=== PATIENT | female | born 1990 | race Caucasian/White ===

== ENCOUNTER 2020-05-23 14:36 | Observation (INO) | payer OTHER, SELFPAY ==
[2020-05-23 15:00] VITALS: BMI 34.9
[2020-05-23 17:31] VITALS: BP 123/86; PULSE 91
--- NOTE | 2020-05-25 09:56 | PM.OBTRLD ---
OB - Triage/Final Diagnosis Visit Information Reason for evaluation: threatened labor Comments/Additional reasons for admission: I have assessed the risk for this patient, Xiomy Rebolledo, and determined that she would benefit from observation care.
== END 2020-05-23 18:04 | disposition home or self-care (01) ==
PROVIDERS: Admitting Provider Obstetrics & Gynecology; PCP Family Medicine Adolescent Medicine; Visit Provider Obstetrics & Gynecology
DX: O47.1 False labor at or after 37 completed weeks of gestation (principal); Z3A.38 38 weeks gestation of pregnancy
CPT/HCPCS: G0378; G0379

== ENCOUNTER 2020-05-27 06:30 | Inpatient (IN) | payer OTHER, SELFPAY ==
[2020-05-27] VITALS (86 sets, daily range): BP systolic 106–140; BP diastolic 54–103; PULSE 64–160; RESP 16–18; TEMP 36.3–37.3; O2SAT 98–100; BMI 34.7
--- NOTE | 2020-05-27 07:28 | PM.IMHP ---
H&P: HPI History of Present Illness Date/Time: 05/27/20 07:28 30 yo at 39w1d who presents for elective induction of labor. She denies any vaginal bleeding, leakage of fluid or regular contractions. She endorses good movement. 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 Chief Complaint: intrauterine at term Review of Systems Review of Systems: All systems reviewed & are unremarkable except as noted in HPI and below PMFSH Family History Family History (System 05/13/20 @ 13:35 by Berenice Laws) Mother Acute myocardial infarction Grandparent Colon cancer Diabetes mellitus Other Patient's mother is Social History Social History (System 05/13/20 @ 13:35 by Berenice Laws) Substance use: never Spiritual care concerns: No Meds Home Medications and Allergies Home Medications Medication Instructions Recorded Confirmed Type prenat.vits,mel,uiw-tfwm-hivat 1 tablet PO DAILY 05/07/20 05/23/20 History sertraline 50 mg PO DAILY 05/07/20 05/23/20 History valacyclovir [Valtrex] 500 mg PO DAILY 05/07/20 05/23/20 History Allergies Allergy/AdvReac Type Severity Reaction Status Date / Time No Known Allergies Allergy Verified 05/13/20 13:35 Vital Signs Vital Signs - 24 hr 05/27/20 07:05 Pulse Rate 100 Blood Pressure 118/85 Exam Const: General: cooperative, healthy appearing and comfortable Resp: Effort & Inspection: normal respiratory effort and able to speak in complete sentences Auscultation: clear to auscultation bilaterally Cardio: Rate: regular rate Rhythm: regular rhythm GI: Inspection: normal to inspection and other (gravid) Skin: General skin exam: normal color and no rashes or lesions noted Neuro: General: oriented to person, oriented to place and oriented to time Extrem: General: normal to inspection Assessment and Plan Assessment and plan (1) Supervision of high risk , unspecified, third trimester: Code(s): O09.93 - Supervision of high risk , unspecified, third trimester Status: Acute Assessment and Plan: 30 yo at 39w1d who presents for elective IOL Rh+ GBS neg FHT cat 1 genital HSV, on valtrex suppression anxiety on zoloft pt had COVID-19 during , asymptomatic now plan for AROM for augmentation continuous EFM
[2020-05-27 07:34] LABS: Basophils Percent Auto 0.3 % (0.2-1.2); Eosinophils Absolute Auto 0.1 K/mm3 (0-0.3); Eosinophils Percent Auto 0.8 % (0-4.4); Hematocrit 37.3 % (37.0-47.0); Hemoglobin 12.7 g/dL (12.0-15.0); Immature Granulocyte Absolute 0.22 K/mm3 (0.00-0.031); Immature Granulocyte Percent A 1.9 % (0-0.5); Lymphocytes Absolute Auto 2.55 K/mm3 (0.9-3.2); Lymphocytes Percent Auto 22.3 % (18.3-44.2); Mean Corpuscular Hemoglobin 32.5 pg (26-34); Mean Corpuscular Volume 95.4 fl (80-100); Mean Platelet Volume 9.7 fl (7.4-10.4); Monocytes Absolute Auto 0.9 K/mm3 (0.1-0.6); Monocytes Percent Auto 8.2 % (2.6-8.5); Neutrophils Absolute Auto 7.6 K/mm3 (1.3-6.7); Neutrophils Percent Auto 66.5 % (45.5-73.1); Platelet Count Result 290 k/mm3 (150-375); Red Blood Count 3.91 M/mm3 (4.2-5.4); Red Cell Distribution Width 12.5 % (11.5-14.5); White Blood Count 11.4 K/mm3 (4.5-10.0)
--- NOTE | 2020-05-27 07:41 | LDADM ---
This patient, Xiomy Rebolledo, was admitted to Labor/Delivery/Recovery 104 on 05/27/20 at 06:30. Plans for labor, pain management and were discussed with patient. Patient/family oriented to hospital policies and general routines including ID bracelet, bed and alarms, visiting hours, pain management, procedures, bathroom and other care routines, personal items, smoking policy, room service/diet and guest tray routines, infant security routines, and visiting hours. Patient/Family are encouraged to report perceived risks to care and to ask questions if they do not understand what they are told or what they should do. See OBIX for further documentation.
[2020-05-27 07:54] LABS: Rapid Plasma Reagin Non-Reactive (NonReactive)
--- NOTE | 2020-05-27 11:08 | WPDANESEPP ---
Anes - Eval Pre Procedure Date/Time: 05/27/20 11:08 Pre Op Diagnosis: Induction of Labor Patient Data Age: 30 Gender: F Height: 1.7 m Weight: 100.7 kg Last Vital Signs Temp 36.3 C L 05/27/20 09:30 Pulse 79 05/27/20 10:16 BP 109/62 05/27/20 10:16 Allergies Allergy/AdvReac Type Severity Reaction Status Date / Time No Known Allergies Allergy Verified 05/13/20 13:35 Home Medications Medication Instructions Recorded Confirmed Type prenat.vits,mel,yas-xdji-czzik 1 tablet PO DAILY 05/07/20 05/23/20 History sertraline 50 mg PO DAILY 05/07/20 05/23/20 History valacyclovir [Valtrex] 500 mg PO DAILY 05/07/20 05/23/20 History Laboratory Tests 05/27/20 05/27/20 05/27/20 06:59 06:59 07:00 WBC 11.4 K/mm3 H K/mm3 (4.5-10.0) RBC 3.91 M/mm3 L M/mm3 (4.2-5.4) Hgb 12.7 g/dL g/dL (12.0-15.0) Hct 37.3 % % (37.0-47.0) MCV 95.4 fl fl (80-100) MCH 32.5 pg pg (26-34) MCHC 34.0 g/dl g/dl (32-36) RDW 12.5 % % (11.5-14.5) Plt Count 290 k/mm3 k/mm3 (150-375) MPV 9.7 fl fl (7.4-10.4) Immature Gran % (Auto) 1.9 % H % (0-0.5) Neut % (Auto) 66.5 % % (45.5-73.1) Lymph % (Auto) 22.3 % % (18.3-44.2) Karnes % (Auto) 8.2 % % (2.6-8.5) Eos % (Auto) 0.8 % % (0-4.4) Baso % (Auto) 0.3 % % (0.2-1.2) Lymph # (Auto) 2.55 K/mm3 K/mm3 (0.9-3.2) Karnes # (Auto) 0.9 K/mm3 H K/mm3 (0.1-0.6) Eos # (Auto) 0.1 K/mm3 K/mm3 (0-0.3) Baso # (Auto) 0.0 K/mm3 K/mm3 (0.0-0.1) Abs Immat Gran (auto) 0.22 K/mm3 H K/mm3 (0.00-0.031) Absolute Neuts (auto) 7.6 K/mm3 H K/mm3 (1.3-6.7) Absolute Nucleated RBC 0.0 K/mm3 K/mm3 (0.0-0.012) Nucleated RBC % 0.0 % % (0.0-0.2) RPR Non-reactive (NonReactive) Blood Type O Positive Antibody Screen Negative Patient hx anesthesia problems: none Family hx anesthesia problems: none PMFSH Past Medical History Medical History Anxiety HSV (herpes simplex virus) infection of eyelid Obese Family History Family History Mother Acute myocardial infarction Grandparent Colon cancer Diabetes mellitus Other Patient's mother is Social History Social History Smoking status: Never smoker Second hand tobacco smoke exposure: No Substance use: never Spiritual care concerns: No Exam Day of Procedure 05/27/20 11:08 Patient weight: obese Heart: regular rate and rhythm Lungs: normal air movement Airway: Mallampati scale class II Neurological: alert and oriented
[2020-05-27] MEDS: LACTATED RINGERS 1,000 ML 125 ML IV CONT ×2 (13:06→13:34)
[2020-05-27] MEDS: OXYTOCIN 30 UNITS/NS 500 ML 30 UNITS/500 ML BAG IV CONT (14:10)
--- NOTE | 2020-05-27 17:00 | P.PCNOB_ITS ---
OB - Delivery Note Procedure Procedure: Patient pushed for a spontaneous vaginal delivery. The fetus was delivered atraumatically and placed on the maternal abdomen. The cord was clamped and cut after 1 minute of life. The cord was double clamped and cut and a segment of cord was collected for cord gases. Cord blood was collected for blood type and Coomb's testing. The placenta delivered spontaneously and was noted to be intact. The perineum was inspected and there was a 2nd degree perineal laceration. The laceration was repaired with 2-0 vicryl in the usual fashion. The uterus was firm and good hemostasis was noted. The patient and fetus were stable in the delivery room. Intrapartal events: None Induction method: AROM Delivery augmentation: pitocin Delivery monitor: external FHT Route of delivery: Episiotomy description: None Laceration Description: Perineal - 2nd Degree Delivery repair: vicryl Specimen: No Quantitative Blood Loss (ml): 400 Anesthesia type: Epidural Disposition: floor () Complications: No immediate complications [place] Baby Date of : 05/27/20 Time of : 16:42 Weeks of gestation at delivery: 39 Infant gender: Male Weight (pounds): 9 Weight (ounces): 6 presentation: vertex position: Right Occiput Anterior Placenta delivery description: Spontaneous cord vessel description: 3 Vessels score one minute: 9 score five minutes: 9
[2020-05-27] MEDS: OXYTOCIN 30 UNITS/NS 500 ML 30 UNITS/500 ML BAG 125 UNITS IV CONT (17:24)
[2020-05-27] MEDS: BENZOCAINE 20% AER SPR (*SP) 56 GM CAN 1 SPRAY TOPICAL (18:23)
[2020-05-27] MEDS: WITCH HAZEL 40 PADS 1 PAD TOPICAL (18:23)
[2020-05-27] MEDS: IBUPROFEN 600 MG TABLET PO (18:36)
[2020-05-27] MEDS: ACETAMINOPHEN 325 MG TABLET 650 MG PO (21:30)
[2020-05-28] MEDS: IBUPROFEN 600 MG TABLET PO ×2 (02:20→08:49)
[2020-05-28 03:13] LABS: Hemoglobin 11.5 g/dL (12.0-15.0)
[2020-05-28 07:05] VITALS: BP 120/82; PULSE 97; RESP 18; TEMP 37.1; O2SAT 99
--- NOTE | 2020-05-28 07:40 | P.PNOB_ITS ---
OB - PN: Subj Subjective Date/time seen: 05/28/20 07:40 Patient comments: no complaints, pain well controlled and tolerating diet [place] feeding status: exclusively breast feeding Narrative: patient doing well this AM. No complaints. Pain is well controlled. She reports minimal bleeding. She is ambulating and voiding without difficulty. She is tolerating PO. She denies N/V, fever, chills. OB - PN: Obj Data Labs CBC & Chem 7: 05/28/20 03:00 Labs: Laboratory Results - last 24 hr 05/27/20 05/27/20 05/28/20 06:59 06:59 03:00 Hgb 11.5 L Hct 34.0 L RPR Non-reactive Blood Type O Positive Antibody Screen Negative OB - PN A/P Plan day: 1 Plan: routine care Comments: patient doing well H/H stable plan for infant circumcision today, risks, benefits and alternatives discussed. verbal consent obtained continue routine care Time Spent With Patient Time: Total time spent is greater than 50% in coordination of care (as documented) at patient's floor/unit and/or counseling patient: Time with patient: less than 15 minutes Review of Systems Review of Systems: All systems reviewed & are unremarkable except as noted in HPI and below Exam Const: General: comfortable and no acute distress Resp: Effort & Inspection: normal respiratory effort Cardio: Rate: regular rate GI: GI Palp: Yes Soft to palpation and No Tenderness to palpation present (GI) Auscultation: normal bowel sounds Other: fundus firm and below umbilicus. Psych: Affect: normal affect
[2020-05-28] MEDS: DOCUSATE SODIUM 100 MG CAPSULE PO (08:49)
[2020-05-28] MEDS: SERTRALINE HCL 50 MG TABLET PO (08:49)
[2020-05-28] MEDS: MULTIVIT/MIN/PREN/FOL AC/IRON TABLET 1 TAB PO (08:49)
--- NOTE | 2020-05-28 09:43 | WPDANLDPN2 ---
Anes-Prog Note L&D Date/Time: 05/28/20 09:43 Comfortable throughout: labor and delivery Neuraxial method: epidural Epidural/Spinal procedure site: clean & non-tender Neuro status: Neuro function grossly intact. Cardiovascular status: normal Respiratory status: normal Airway patency: baseline Mental status: baseline Post-Op hydration status: normal Vital Signs: Last Vital Signs Temp 37.1 C 05/28/20 07:05 Pulse 97 05/28/20 07:05 Resp 18 05/28/20 07:05 BP 120/82 05/28/20 07:05 Pulse Ox 99 05/28/20 07:05 Pain score (VAS): 3 I/O: Intake & Output 05/27/20 05/28/20 05/28/20 23:59 07:59 15:59 Intake Total 1700 Output Total 520 Balance 1180 Post-procedural complaints: none Patient feedback: Patient satisfied with anesthetic care.
--- NOTE | 2020-05-28 10:50 | PC.NURSE ---
Consulted with patient, mother reports infant is eagerly feeding without difficulties or discomfort. Mother reports this to be 2nd child first is 5 yrs old. Reviewed infant feeding cues, frequencies, duration of feedings, feeding elimination flow sheet, and signs of adequate intake. Demonstrated stimulation techniques to wake for feeding. Reviewed positioning/alignment in cross cradle, holding breast in U hold and guided asymmetrical latch on. was able to latch correctly. Infant nursed eagerly, with steady draws and frequent swallowing noted. Reviewed signs of a correct latch, effective nursing and suck swallow ratio. Infant was able to maintain latch without discomfort to mother. Nipple care reviewed. Mother is feeding as required and waking infant to feed if needed. has had several effective feedings in the past 24 hours, and is currently meeting outcomes for weight, output, jaundice and feeding frequencies. Mother states she feels confident to continue effective at home. Reviewed transition to breast milk, signs of adequate intake, and engorgement/relief. Instructed to call ICP if intake/output less than required. Reviewed regular medications mother is taking. Information provided per Miriam. Reviewed community resources on the [employer] website and in the Mom/Baby guide. Information on outpatient services provided. Mother has no further questions at this time. Instructed mother to call out for RN assistance if she is unable to latch for feeding or she has discomfort with nursing. Instructed feeding should be initiated three hours from start of last feeding or if feeding cues are noted before. Mother voiced understanding of information shared.
[2020-05-28 11:55] VITALS: BP 97/55; PULSE 66; RESP 18; TEMP 36.9; O2SAT 98
[2020-05-28] MEDS: ACETAMINOPHEN 325 MG TABLET 650 MG PO ×2 (13:23→19:05)
[2020-05-28 16:40] VITALS: BP 106/61; PULSE 71; RESP 16; TEMP 36.9
[2020-05-28 18:58] VITALS: BP 104/59; PULSE 69; RESP 16; TEMP 36.8
--- NOTE | 2020-05-29 07:21 | PM.OBDSVD ---
DS: Admitting Diagnosis Admitting Diagnosis Admitting Diagnosis: intrauterine at term OB - DS: Summary OB Procedures : None OB Procedures Intrapartum: Spontaneous Vag Delivery OB Procedures: : None Status at Discharge Functional status at discharge: independent ambulation Overall status at discharge: patient is back to baseline Time Spent with Patient Time attestation: Total time spent providing and/or coordinating discharge services: Time spent: Less than 30 minutes Exam Const: General: comfortable and no acute distress Resp: Effort & Inspection: normal respiratory effort Auscultation: clear to auscultation bilaterally Cardio: Rate: regular rate GI: GI Palp: Yes Soft to palpation Auscultation: normal bowel sounds Other: Fundus firm below umbilicus Psych: Appearance: grossly normal Mental Status: mental status grossly normal Affect: normal affect Discharge Plan Discharge Discharging Clinician: Lonnie Mari Anticipated Discharge Date/Time: 05/29/20 07:21 Patient Disposition: Home, Self-Care Activity: as tolerated and pelvic rest Diet: regular Patient Instructions: Vaginal Delivery (DC), Antibiotic Form Stand Alone Forms: General Discharge Information Follow-up/Referrals: Markie Gann MD [Physician] - Discharge Medications: New Dermoplast (with menthol) 20-0.5 % Aerosol 1 spray topical PRN PRN (Reason: Perineal Discomfort) Qty: 1 RF: 0 acetaminophen [Mapap (acetaminophen)] 325 mg Tablet 650 mg PO Q6H PRN (Reason: Mild Pain (1-3) Or Headache) Qty: 30 RF: 0 ibuprofen 600 mg Tablet 600 mg PO Q6H PRN (Reason: Cramping) Qty: 30 RF: 0 Loc-B-Egcjro Cream 1 applic topical PRN PRN (Reason: Sore Nipples) Qty: 28 RF: 0 Continued valacyclovir [Valtrex] 500 mg Tablet 500 mg PO DAILY RF: 0 sertraline 50 mg Tablet 50 mg PO DAILY RF: 0 prenat.vits,mel,voj-jtrf-dhqxg Tablet 1 tablet PO DAILY RF: 0 Date of admission: 05/27/20 06:30 Primary Care Provider: Ronan Ventura Admitting Provider: Markie Gann Attending physician on admission: Markie Gann Condition: Stable
[2020-05-29] MEDS: MULTIVIT/MIN/PREN/FOL AC/IRON TABLET 1 TAB PO (08:17)
[2020-05-29] MEDS: WITCH HAZEL 40 PADS 1 PAD TOPICAL (08:17)
[2020-05-29] MEDS: DOCUSATE SODIUM 100 MG CAPSULE PO (08:17)
[2020-05-29] MEDS: BENZOCAINE 20% AER SPR (*SP) 56 GM CAN 1 SPRAY TOPICAL (08:17)
[2020-05-29] MEDS: SERTRALINE HCL 50 MG TABLET PO (08:17)
[2020-05-29] MEDS: ACETAMINOPHEN 325 MG TABLET 650 MG PO (08:22)
[2020-05-29 08:30] VITALS: BP 110/66; PULSE 69; PULSE 80; RESP 16; RESP 18; TEMP 36.6; O2SAT 100; O2SAT 98
[2020-05-31 11:15] VITALS: BP 121/75; PULSE 85; RESP 20; TEMP 36.7; O2SAT 100
== END 2020-05-29 10:33 | disposition home or self-care (01) | DRG 806 ==
LOC: ANHOB2 05-29 07:24 → ANHLDR 06-01 09:27 → ANHOB2 06-01 09:27
PROVIDERS: Admitting Provider Student in an Organized Health Care Education/Training Program; PCP Family Medicine Adolescent Medicine; Visit Provider Student in an Organized Health Care Education/Training Program
DX: O99.344 Other mental disorders complicating childbirth (principal); Z37.0 Single live birth; Z3A.39 39 weeks gestation of pregnancy; F41.9 Anxiety disorder, unspecified; O98.32 Other infections with a predominantly sexual mode of transmission complicating childbirth; B00.9 Herpesviral infection, unspecified; O70.1 Second degree perineal laceration during delivery; O99.214 Obesity complicating childbirth; E66.9 Obesity, unspecified; Z86.16 Personal history of COVID-19
CPT/HCPCS: 36415; 85014; 85018; 85025; 86592; 86850; 86900; 86901; A9270; J2590; J2795; J7120

== ENCOUNTER 2022-05-03 08:02 | Outpatient (CLI) | payer OTHER, SELFPAY ==
[2022-05-03 08:20] VITALS: BP 107/66; PULSE 89
[2022-05-03 08:30] VITALS: BP 116/66; PULSE 79
[2022-05-03 08:33] LABS: Basophils Percent Auto 0.2 % (0.2-1.2); Eosinophils Absolute Auto 0.1 K/mm3 (0-0.3); Eosinophils Percent Auto 0.6 % (0-4.4); Hemoglobin 13.2 g/dL (12.0-15.0); Immature Granulocyte Absolute 0.06 K/mm3 (0.00-0.031); Immature Granulocyte Percent A 0.5 % (0-0.5); Lymphocytes Absolute Auto 1.87 K/mm3 (0.9-3.2); Lymphocytes Percent Auto 15.7 % (18.3-44.2); Mean Corpuscular HGB Conc 33.8 g/dl (32-36); Mean Corpuscular Hemoglobin 33.1 pg (26-34); Mean Corpuscular Volume 97.7 fl (80-100); Mean Platelet Volume 9.1 fl (7.4-10.4); Monocytes Absolute Auto 0.7 K/mm3 (0.1-0.6); Monocytes Percent Auto 5.7 % (2.6-8.5); Neutrophils Absolute Auto 9.2 K/mm3 (1.3-6.7); Neutrophils Percent Auto 77.3 % (45.5-73.1); Platelet Count Result 280 k/mm3 (150-375); Red Blood Count 3.99 M/mm3 (4.2-5.4); Red Cell Distribution Width 13.1 % (11.5-14.5); White Blood Count 11.9 K/mm3 (4.5-10.0)
[2022-05-03 08:42] LABS: Total Protein Urine Random 10 mg/dL; Ur Ttl Prot Creatinine Ratio 0.13 mg/mg (0-0.20)
[2022-05-03 08:45] VITALS: BP 112/67; PULSE 72
--- NOTE | 2022-05-03 08:45 | PC.NURSE ---
Dr. Gann on unit. Tracing, labs, and BPs reviewed. July D/C home.
[2022-05-03 08:46] LABS: Alanine Aminotransferase 16 U/L (6-35); Albumin Level 3.8 g/dL (3.5-5.1); Alkaline Phosphatase 108 U/L (38-126); Anion Gap 6 mmol/L (8-16); Aspartate Amino Transferase 23 U/L (14-36); Bilirubin,Total 0.5 mg/dL (0.2-1.3); Blood Urea Nitrogen 8 mg/dL (7-17); Calcium 8.2 mg/dL (8.4-10.2); Carbon Dioxide 21 mmol/L (22-30); Chloride 107 mmol/L (98-107); Estimated Glomerular Filt Rate > 60; Glucose 91 mg/dL (65-110); Potassium 4.2 mmol/L (3.4-5.0); Sodium 134 mmol/L (137-145)
[2022-05-03 08:47] VITALS: PULSE 72
[2022-05-03 08:50] LABS: Appearance Urine Clear (Clear); Bilirubin Urine Negative (Negative); Blood Urine Negative (Negative); Color Urine Yellow (Yellow); Glucose Urine UA Negative (Negative); Ketones Urine Negative (Negative); Leukocyte Esterase Ur Trace LEU/UL (NEGATIVE); Nitrate Urine Negative (Negative); Protein Urine Negative (Negative); pH Urine 7.5 (5.0-9.0)
[2022-05-03 08:55] LABS: Bacteria Urine Trace /hpf; Mucus Urine Rare /lpf; RBC Urine 0-2 /hpf (0-2); Squamous Epithelial Cell Urine Many /hpf (Few)
[2022-05-03 09:32] LABS: Add Urine Microscopic? YES
== END 2022-05-03 08:55 | disposition home or self-care (01) ==
LOC: ANHOBOP 08:09 → ANHOBPP 08:09
PROVIDERS: PCP Family Medicine Adolescent Medicine; Visit Provider Obstetrics & Gynecology
DX: O13.9 Gestational [pregnancy-induced] hypertension without significant proteinuria, unspecified trimester (principal); Z3A.00 Weeks of gestation of pregnancy not specified
CPT/HCPCS: 36415; 59025; 80053; 81001; 82570; 84156; 84550; 85025; 87086; 99199

== ENCOUNTER 2022-07-18 01:32 | Emergency (ER) | payer OTHER, SELFPAY ==
[2022-07-18 01:37] VITALS: BP 119/72; PULSE 135; RESP 20; TEMP 37.7; O2SAT 99
--- NOTE | 2022-07-18 02:58 | PC.NURSE ---
Pt approached triage desk and states Im just going to go, my doctor is going to call me in a script tomorrow . Pt ambulated out of ED with steady gait, in no obvious distress.
== END 2022-07-18 03:25 | disposition left against medical advice (07) ==
LOC: ANHED 03:15
PROVIDERS: PCP Family Medicine Adolescent Medicine
DX: O92.29 Other disorders of breast associated with pregnancy and the puerperium (principal)
CPT/HCPCS: 99199

== ENCOUNTER 2023-09-01 09:48 | Emergency (ER) | payer OTHER, SELFPAY ==
--- NOTE | ~2023-09-01 | CT_ITS ---
EXAMINATION: CT abdomen pelvis w con DATE: 09/01/2023 11:26 INDICATION: Left upper and lower quadrant abdominal pain TECHNIQUE: Computed tomography (CT) of the abdomen and pelvis was performed with 100 CC Omnipaque 350 intravenous contrast. Automated exposure control and iterative reconstruction technique were employe d. Exam dose: 418.24 mGy-cm total exam DLP. COMPARISON: None. FINDINGS: The lung bases are clear. Normal heart size. No pericardial or pleural effusion. The liver, gallbladder, bile ducts, spleen, pancreas and pancreatic duct appear normal. Normal morphology of the adrenal glands. No renal mass lesion or urinary tract calculus or hydroureteronephrosis. Alignment normal caliber of the abdominal aorta. No intraperitoneal or retroperitoneal or pelvic mass lesion or adenopathy or asc ites is detected. Normal caliber of the abdominal aorta. No intraperitoneal or retroperitoneal or pelvic mass lesion o r adenopathy or ascites. The uterus, adnexal areas are unremarkable other than ovarian cysts measurin g up to approximately 12 mm maximal dimension. There is mucosal enhancement and wall thickening of the rectum and colon. There are some fluid levels in the small bowel as well as colon no bowel obstruction or intraperitoneal free air is detected. L3 limbus vertebra. No suspicious osteolytic or osteoblastic lesions. IMPRESSION: Mucosal enhancement and thickening of the wall of the rectum and colon suggesting diffus e colitis, which may be infectious or inflammatory; no mesenteric arterial strictures or obstruction are noted Reviewed, dictated and finalized at [facility]. Reviewed, dictated and finalized at [facility]. IMPRESSION: Mucosal enhancement and thickening of the wall of the rectum and c olon suggesting diffuse colitis, which may be infectious or inflammatory; no me senteric arterial strictures or obstruction are noted
[2023-09-01 10:12] VITALS: BP 117/85; PULSE 82; RESP 20; TEMP 36.7; O2SAT 98
--- NOTE | 2023-09-01 10:36 | ED.GENADULT ---
HPI - General Adult General Chief complaint: Nausea/Vomiting/Diarrhea Stated complaint: vomiting/diarrhea x 4 days Time Seen by Provider: 09/01/23 09:54 History of Present Illness HPI narrative: 33-year-old female presenting to the emergency department for evaluation for left-sided abdominal pain. Patient has had nausea vomiting diarrhea for the last 4 days. Patient states that she has also had some bright red blood in her stool but has also had some dark black in her stool. Patient states she has been taking increased ibuprofen due to ankle pain and knee pain. Patient was just on vacation and denies any excessive alcohol consumption. Related Data Home Medications Medication Instructions Recorded Confirmed sertraline 100 mg tablet 100 mg PO DAILY 09/15/21 06/04/23 alprazolam 0.5 mg tablet (Xanax) 0.5 mg PO BID 01/15/23 06/04/23 Allergies Allergy/AdvReac Type Severity Reaction Status Date / Time No Known Allergies Allergy Verified 06/04/23 15:15 Review of Systems Review of Systems: All systems reviewed & are unremarkable except as noted in HPI and below PMFSH Past Medical History Medical History (Updated 09/01/23 @ 17:33 by Mark Fierro MD) Abnormal thyroid exam Anxiety BMI 30.0-30.9,adult BMI 31.0-31.9,adult Fatigue Fracture of left forearm 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 Right ankle strain Torn ACL Family History Family History Mother Acute myocardial infarction Patient's mother is Grandparent Colon cancer Diabetes mellitus Father Hypertension Acute alcoholic intoxication in alcoholism Sibling Hypertension Hyperlipidemia Social History Social History Smoking status: Never smoker Second hand tobacco smoke exposure: No Alcohol intake: current Substance use: never Substance use type: does not use Do You Feel Safe in your Home?: Yes Lack of Transportation: No Lack of Food: Never True Current Housing: I Have Housing Concerned About Future Housing: No Difficulty Paying Gas/Electric Bills: No Difficulty Paying for Meds: No Currently Unemployed: No Education: Bachelor's Degree Difficulty w/ Childcare or Family Care: No Living arrangements: with family Occupation/Education: occupation 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 Gender identity (if verbalized by the patient): Female Spiritual care concerns: No Exam Narrative: APPEARANCE: Well appearing, no pain, no distress, well-nourished. HEAD: normocephalic, atraumatic. EYES: PERRLA/EOMI, conjunctivae clear. NOSE: Normal no drainage EARS:TMS clear with good light reflex. THROAT: Pharynx clear, no exudate. NECK: Supple. No adenopathy, no masses. RESPIRATORY: Airway patent, respirations nonlabored. Clear to auscultation bilaterally, no rales, rhonchi, wheezing. CARDIOVASCULAR: Regular rate and rhythm without murmurs rubs or gallops. ABDOMINAL: Left upper and left lower quadrant tenderness to palpation Rectal exam: Hemoccult negative on the digital rectal exam MUSCULOSKELETAL: Moves all extremities. Strength/ROM intact, No edema, No calf tenderness. NEURO: Alert. Cranial nerves II through XII intact. Grossly intact SKIN: Warm, dry. Normal Color Course Course Emergency Course: Patient was up to the results of workup patient was comfortable plan with discharge and close follow-up Vital Signs Vital signs: Vital Signs Temperature 98.0 F 09/01/23 10:12 Pulse Rate 82 09/01/23 10:12 Respiratory Rate 20 09/01/23 10:12 Blood Pressure 117/85 09/01/23 10:12 Pulse Oximetry 98 09/01/23 10:12 Oxygen Delivery Room Air 09/01/23 10:12 Temperature 98.0 F 09/01/23 10:12 Pulse Rate 74 09/01/23 12:34 Respiratory Rate 18 09/01/23 12:34 Blood Pressure 117/72 09/01/23 12:34 Pulse O
[2023-09-01] MEDS: SODIUM CHLORIDE 0.9% IV 1,000 ML 999 ML IV CONT (10:53)
[2023-09-01 10:54] LABS: Hematocrit 42.6 % (37.0-47.0); Hemoglobin 14.3 g/dL (12.0-15.0); Mean Corpuscular HGB Conc 33.6 g/dl (32-36); Mean Corpuscular Hemoglobin 31.5 pg (26-34); Mean Corpuscular Volume 93.8 fl (80-100); Mean Platelet Volume 9.6 fl (7.4-10.4); Platelet Count Result 272 k/mm3 (150-375); Red Blood Count 4.54 M/mm3 (4.2-5.4); Red Cell Distribution Width 12.4 % (11.5-14.5); White Blood Count 6.2 K/mm3 (4.5-10.0)
[2023-09-01 11:06] LABS: Lactic Acid Reflex 0.5 mmol/L (0.7-2.0)
[2023-09-01 11:07] LABS: Alanine Aminotransferase 12 U/L (6-35); Albumin Level 4.7 g/dL (3.5-5.1); Alkaline Phosphatase 80 U/L (38-126); Anion Gap 11 mmol/L (4-12); Aspartate Amino Transferase 26 U/L (14-36); Bilirubin,Total 0.5 mg/dL (0.2-1.3); Blood Urea Nitrogen 8 mg/dL (7-17); Calcium 9.1 mg/dL (8.4-10.2); Carbon Dioxide 22 mmol/L (22-30); Chloride 105 mmol/L (98-107); Estimated CRCL calculation 83 ml/min; Estimated Glomerular Filt Rate > 60; Glucose 88 mg/dL (65-110); Lipase 58 U/L (23-300); Potassium 3.6 mmol/L (3.4-5.0); Sodium 138 mmol/L (137-145)
[2023-09-01 11:31] LABS: Appearance Urine Clear (Clear); Bacteria Urine None Seen /hpf; Bilirubin Urine 1+ (Negative); Blood Urine 2+ (Negative); Color Urine Dark Yellow (Yellow); Glucose Urine UA Negative (Negative); Ketones Urine 1+ mg/dL (Negative); Leukocyte Esterase Ur Negative LEU/UL (Negative); Need Manual Microscopic Reviewed; Nitrate Urine Negative (Negative); Protein Urine 2+ mg/dL (Negative); RBC Urine 21-50 /hpf (0-2); Specific Grav Ur 1.028 (1.001-1.035); Squamous Epithelial Cell Urine Occasional /hpf (Few)
[2023-09-01 11:36] LABS: Add Urine Microscopic? YES
[2023-09-01 12:00] LABS: Band Neutrophils Percent 2 % (0-6); Eosinophils Absolute Manual 0.12 K/mm3 (0.02-0.50); Eosinophils Percent Manual 2 % (0-4); Lymphocytes Absolute Manual 1.42 K/mm3 (1.1-4.5); Monocytes Absolute Manual 1.24 K/mm3 (0.1-0.90); Monocytes Percent Manual 20 % (3-9); Neutrophils Absolute Manual 3.41 K/mm3 (1.7-7.2); Neutrophils Percent Manual 53 % (46-73); Total Cells Counted 100
[2023-09-01 12:01] LABS: Platelet Estimate Adequate (Adequate); Schistocytes None Seen
[2023-09-01 12:34] VITALS: BP 117/72; PULSE 74; RESP 18; O2SAT 100
== END 2023-09-01 12:35 | disposition home or self-care (01) ==
PROVIDERS: Emergency Provider Emergency Medicine; PCP Family Medicine
DX: K52.9 Noninfective gastroenteritis and colitis, unspecified (principal)
CPT/HCPCS: 36415; 74177; 80053; 81001; 81025; 83605; 83690; 85025; 87086; 96360; 96361; 99284; J7030; Q9967

== ENCOUNTER 2023-09-20 18:10 | Emergency (ER) | payer OTHER, SELFPAY ==
[2023-09-20 18:12] VITALS: BP 110/74; PULSE 123; RESP 16; TEMP 36.7; O2SAT 100
[2023-09-20 18:38] LABS: Basophils Percent Auto 0.2 % (0.2-1.2); Eosinophils Absolute Auto 0.1 K/mm3 (0-0.3); Eosinophils Percent Auto 0.7 % (0-4.4); Hematocrit 41.5 % (37.0-47.0); Hemoglobin 13.9 g/dL (12.0-15.0); Immature Granulocyte Absolute 0.01 K/mm3 (0.00-0.031); Immature Granulocyte Percent A 0.1 % (0-0.5); Lymphocytes Percent Auto 10.3 % (18.3-44.2); Mean Corpuscular HGB Conc 33.5 g/dl (32-36); Mean Corpuscular Hemoglobin 31.3 pg (26-34); Mean Corpuscular Volume 93.5 fl (80-100); Mean Platelet Volume 9.7 fl (7.4-10.4); Monocytes Absolute Auto 0.5 K/mm3 (0.1-0.6); Monocytes Percent Auto 5.6 % (2.6-8.5); Neutrophils Absolute Auto 7.3 K/mm3 (1.3-6.7); Neutrophils Percent Auto 83.1 % (45.5-73.1); Platelet Count Result 283 k/mm3 (150-375); Red Blood Count 4.44 M/mm3 (4.2-5.4); Red Cell Distribution Width 12.8 % (11.5-14.5); White Blood Count 8.8 K/mm3 (4.5-10.0)
[2023-09-20 18:47] LABS: Alanine Aminotransferase 13 U/L (6-35); Albumin Level 4.7 g/dL (3.5-5.1); Alkaline Phosphatase 73 U/L (38-126); Anion Gap 10 mmol/L (4-12); Aspartate Amino Transferase 23 U/L (14-36); Bilirubin,Total 0.9 mg/dL (0.2-1.3); Blood Urea Nitrogen 20 mg/dL (7-17); Calcium 8.9 mg/dL (8.4-10.2); Carbon Dioxide 25 mmol/L (22-30); Chloride 102 mmol/L (98-107); Estimated CRCL calculation 83 ml/min; Estimated Glomerular Filt Rate > 60; Glucose 106 mg/dL (65-110); Lipase 53 U/L (23-300); Potassium 3.8 mmol/L (3.4-5.0); Sodium 137 mmol/L (137-145)
[2023-09-20 19:07] VITALS: BP 102/71; PULSE 96
[2023-09-20 19:08] VITALS: BP 105/74; PULSE 115
[2023-09-20 19:09] VITALS: BP 119/72; PULSE 128
[2023-09-20 19:22] VITALS: BP 119/72; PULSE 102; RESP 16; O2SAT 98
[2023-09-20 19:29] LABS: Appearance Urine Clear (Clear); Bacteria Urine None Seen /hpf; Bilirubin Urine Negative (Negative); Blood Urine Negative (Negative); Color Urine Yellow (Yellow); Glucose Urine UA Negative (Negative); Ketones Urine 2+ mg/dL (Negative); Leukocyte Esterase Ur Trace LEU/UL (Negative); Nitrate Urine Negative (Negative); Non Pathogenic Casts 0-2; Protein Urine Negative (Negative); Specific Grav Ur 1.025 (1.001-1.035); Squamous Epithelial Cell Urine Occasional /hpf (Few); WBC Urine 0-5 /hpf (0-3); pH Urine 6.5 (5.0-9.0)
[2023-09-20 19:30] LABS: Add Urine Microscopic? YES
[2023-09-20] MEDS: ONDANSETRON INJ 4 MG/2 ML VIAL IV PUSH (19:53)
[2023-09-20] MEDS: SODIUM CHLORIDE 0.9% IV 1,000 ML 999 ML IV CONT (19:54)
--- NOTE | 2023-09-20 20:33 | ED.NAVMDI ---
HPI - Nausea/Vomiting/Diarrhea General Chief complaint: Nausea/Vomiting/Diarrhea Stated complaint: vomiting Time Seen by Provider: 09/20/23 19:03 History of Present Illness HPI Narrative: Patient is a 33-year-old male who presents ER with nausea vomiting. Sudden onset this morning. Over to 10 episodes. No blood. No diarrhea. Reports mild stomach upset but no pain. Recently had a GI illness that she is being referred to a GI specialist for. She tried Zofran Pepcid home without improvement. Related Data Home Medications Medication Instructions Recorded Confirmed sertraline 100 mg tablet 100 mg PO DAILY 09/15/21 09/18/23 Allergies Allergy/AdvReac Type Severity Reaction Status Date / Time No Known Allergies Allergy Verified 09/18/23 07:41 Review of Systems Review of Systems: All systems reviewed & are unremarkable except as noted in HPI and below Constitutional: Constitutional: Reports no additional constitutional complaints Cardiovascular: Cardiovascular: Reports no additional cardiovascular complaints Respiratory: Respiratory: Reports no additional respiratory complaints Gastrointestinal: Gastrointestinal: Denies abdominal pain, Reports heartburn, Denies diarrhea, Reports nausea and Reports vomiting Genitourinary: Genitourinary: Reports no additional female genitourinary complaints [facility] Past Medical History Medical History Abnormal thyroid exam Anxiety BMI 30.0-30.9,adult BMI 31.0-31.9,adult Fatigue Fracture of left forearm 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 Right ankle strain Torn ACL Family History Family History Mother Acute myocardial infarction Patient's mother is Grandparent Colon cancer Diabetes mellitus Father Hypertension Acute alcoholic intoxication in alcoholism Sibling Hypertension Hyperlipidemia Social History Social History Smoking status: Never smoker Second hand tobacco smoke exposure: No Alcohol intake: current Substance use: never Substance use type: does not use Do You Feel Safe in your Home?: Yes Lack of Transportation: No Lack of Food: Never True Current Housing: I Have Housing Concerned About Future Housing: No Difficulty Paying Gas/Electric Bills: No Difficulty Paying for Meds: No Currently Unemployed: No Education: Bachelor's Degree Difficulty w/ Childcare or Family Care: No Living arrangements: with family Occupation/Education: occupation 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 Gender identity (if verbalized by the patient): Female Spiritual care concerns: No Exam Narrative: GENERAL: Well-appearing, well-nourished, and in no acute distress. HEAD: Normocephalic, atraumatic. ENT: Mucous membranes moist. CHEST: Clear to auscultation. No respiratory distress. HEART: Regular rate and rhythm. Normal peripheral pulses. ABDOMEN: Soft, nontender, nondistended. EXTREMITIES: Normal range of motion. No edema. SKIN: Warm, dry, no rash. NEURO: Alert and oriented x3. PSYCH: Normal mood and affect. Course Course Emergency Course: Patient feels improved with IV fluid. She also received antiemetics. Labs unremarkable. No need for CT scan. Discharge. Vital Signs Vital signs: Vital Signs Temperature 98.0 F 09/20/23 18:12 Pulse Rate 123 H 09/20/23 18:12 Respiratory Rate 16 09/20/23 18:12 Blood Pressure 110/74 09/20/23 18:12 Pulse Oximetry 100 09/20/23 18:12 Oxygen Delivery Room Air 09/20/23 18:12 Temperature 98.0 F 09/20/23 18:12 Pulse Rate 102 H 09/20/23 19:22 Respiratory Rate 16 09/20/23 19:22 Blood Pressure 119/72 09/20/23 19:22 Pulse Oximetry 98 09/20/23 19:22 Oxygen Delivery Room Air 09/20/23 18:12 MDM - Nausea/Vomit
[2023-09-20 20:56] VITALS: BP 119/77; PULSE 86; RESP 18; O2SAT 99
== END 2023-09-20 20:57 | disposition home or self-care (01) ==
PROVIDERS: Emergency Medicine; Emergency Provider Emergency Medicine; PCP Family Medicine
DX: R11.2 Nausea with vomiting, unspecified (principal); F41.9 Anxiety disorder, unspecified; Z79.899 Other long term (current) drug therapy; Z79.85 Long-term (current) use of injectable non-insulin antidiabetic drugs
CPT/HCPCS: 36415; 80053; 81001; 81025; 83690; 85025; 96361; 96374; 99284; J2405; J7030

== ENCOUNTER 2023-10-19 08:33 | Outpatient (CLI) | payer OTHER, SELFPAY ==
--- NOTE | ~2023-10-19 | US_ITS ---
US abdomen limited INDICATION: Epigastric pain PROCEDURE: Realtime right upper abdominal ultrasound. COMPARISON: No prior studies for comparison. FINDINGS: The pancreas is normal without focal mass or pancreatic ductal dilation. Liver echotexture is normal without focal mass or intrahepatic biliary dilatation. There is normal directional flow i n the portal vein. The gallbladder is normal without stones, gallbladder wall thickening or pericholecystic fluid. Comm on bile duct measures 3 mm. No sonographic Wagner's sign. IMPRESSION: 1: Normal limited abdominal ultrasound. Reviewed, dictated and finalized at [facility].
== END 2023-10-19 08:34 | disposition home or self-care (01) ==
PROVIDERS: PCP Family Medicine; Visit Provider Nurse Practitioner
DX: R11.2 Nausea with vomiting, unspecified (principal); R10.13 Epigastric pain
CPT/HCPCS: 76705

== ENCOUNTER 2023-10-23 07:00 | Outpatient (NON) | payer OTHER, SELFPAY | END 2023-10-23 07:01 | disposition home or self-care (01) | LOC: ANHLAB 10-24 09:33 | PROVIDERS: PCP Family Medicine; Visit Provider Internal Medicine Gastroenterology | DX: K29.80 Duodenitis without bleeding (principal) | CPT/HCPCS: 88305 ==

== ENCOUNTER 2023-10-23 07:11 | Day surgery (SDC) | payer OTHER, SELFPAY ==
[2023-10-03 08:10] VITALS: BMI 26.6
[2023-10-15 10:50] VITALS: BMI 25.9
--- NOTE | 2023-10-22 12:46 | PM.HPGS ---
History of Present Illness History of Present Illness Consent: Risks, benefits, and alternatives have been discussed and questions answered. Patient agrees to proceed with procedure. Chief complaint: Epigastric Pain, Nausea, Vomitting, Colitis Narrative: Xiomy Rebolledo is a 33 year old female referred for colonoscopy. She was seen in the ER on 09/01/23 for lower abdominal pain, nausea, vomiting and diarrhea with bright red blood in her stool for 4 days. She lost 10 pounds in [address] abdomen/pelvis showed mucosal enhancement and thickening of the wall of the rectum and colon suggesting diffuse colitis. She was diagnosed with nonspecific colitis and discharged on Augmentin x 7 days. 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 Right ankle strain Torn ACL Family History Family History Mother Acute myocardial infarction Patient's mother is Grandparent Colon cancer Diabetes mellitus Father Hypertension Acute alcoholic intoxication in alcoholism Sibling Hypertension Hyperlipidemia Social History Social History Smoking status: Never smoker Second hand tobacco smoke exposure: No Alcohol intake: current Drinks per week: 1 Substance use: current Substance use type: marijuana Other substance usage details: 1x A WEEK Do You Feel Safe in your Home?: Yes Lack of Transportation: No Lack of Food: Never True Current Housing: I Have Housing Concerned About Future Housing: No Difficulty Paying Gas/Electric Bills: No Difficulty Paying for Meds: No Currently Unemployed: No Education: Bachelor's Degree Difficulty w/ Childcare or Family Care: No Living arrangements: with family Occupation/Education: occupation 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 Gender identity (if verbalized by the patient): Female Spiritual care concerns: No Meds Home Medications and Allergies Home Medications Medication Instructions Recorded Confirmed Type sertraline 100 mg tablet 100 mg PO DAILY 09/15/21 10/23/23 History valacyclovir 500 mg tablet 500 mg PO DAILY #90 tabs 01/15/23 10/23/23 Rx (Valtrex) alprazolam 0.5 mg tablet (Xanax) 0.5 mg PO BID #30 tabs 09/18/23 10/23/23 Rx omeprazole 20 mg capsule,delayed 20 mg PO DAILY #30 caps 09/28/23 10/23/23 Rx release Bifidobacterium infantis 4 mg 4 mg PO DAILY 10/15/23 10/23/23 History capsule (Align) docusate sodium 100 mg capsule 100 mg PO DAILY 10/15/23 10/23/23 History (Colace) Allergies Allergy/AdvReac Type Severity Reaction Status Date / Time No Known Allergies Allergy Verified 10/23/23 07:41 Exam Resp: Auscultation: clear to auscultation bilaterally Cardio: Rate: regular rate Rhythm: regular rhythm GI: GI Palp: Yes Soft to palpation and No Tenderness to palpation present (GI) Assessment and Plan Assessment and plan (1) Epigastric pain: Code(s): R10.13 - Epigastric pain Status: Acute Assessment and Plan: EGD with possible biopsy or dilatation or cautery. (2) Abnormal CT scan, gastrointestinal tract: Code(s): R93.3 - Abnormal findings on diagnostic imaging of other parts of digestive tract Status: Acute Assessment and Plan: Colonoscopy with possible biopsy or polypectomy or cautery or injection of substances.
[2023-10-23 07:46] VITALS: BP 106/79; PULSE 93; RESP 14; TEMP 36.6; O2SAT 100
[2023-10-23] MEDS: LACTATED RINGERS 1,000 ML 150 ML IV CONT (07:49)
--- NOTE | 2023-10-23 08:51 | WPDANESEPPF ---
Anes - Initial Pre Proc Eval Procedure: Operation Date: 10/23/23 09:00 Proposed Procedures p Esophagogastroduodenoscopy - Onesimo Ayala MD s Diagnostic Colonoscopy - Onesimo Ayala MD Date/Time: 10/23/23 08:51 Surgeon: Onesimo Ayala MD Pre Op Diagnosis: Epigastric Pain, Nausea, Vomitting, Colitis Patient Data Age: 33 Gender: F Height: 1.7 m Weight: 75 kg Last Vital Signs Temp 36.6 C 10/23/23 07:46 Pulse 93 10/23/23 07:46 Resp 14 10/23/23 07:46 BP 106/79 10/23/23 07:46 Pulse Ox 100 10/23/23 07:46 O2 Del Method Room Air 10/23/23 07:46 Allergies Allergy/AdvReac Type Severity Reaction Status Date / Time No Known Allergies Allergy Verified 10/23/23 07:41 Home Medications Medication Instructions Recorded Confirmed Type sertraline 100 mg tablet 100 mg PO DAILY 09/15/21 10/23/23 History valacyclovir 500 mg tablet 500 mg PO DAILY #90 tabs 01/15/23 10/23/23 Rx (Valtrex) alprazolam 0.5 mg tablet (Xanax) 0.5 mg PO BID #30 tabs 09/18/23 10/23/23 Rx omeprazole 20 mg capsule,delayed 20 mg PO DAILY #30 caps 09/28/23 10/23/23 Rx release Bifidobacterium infantis 4 mg 4 mg PO DAILY 10/15/23 10/23/23 History capsule (Align) docusate sodium 100 mg capsule 100 mg PO DAILY 10/15/23 10/23/23 History (Colace) Patient hx anesthesia problems: none Family hx anesthesia problems: none Results Review: All pre-operative results and documents have been reviewed as part of the pre-operative evaluation. 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 Right ankle strain Torn ACL Surgical History Surgical History (Updated 10/23/23 @ 08:51 by Dany Mishra MD) History of ankle surgery Family History Family History Mother Acute myocardial infarction Patient's mother is Grandparent Colon cancer Diabetes mellitus Father Hypertension Acute alcoholic intoxication in alcoholism Sibling Hypertension Hyperlipidemia Social History Social History Smoking status: Never smoker Second hand tobacco smoke exposure: No Alcohol intake: current Drinks per week: 1 Substance use: current Substance use type: marijuana Other substance usage details: 1x A WEEK Do You Feel Safe in your Home?: Yes Lack of Transportation: No Lack of Food: Never True Current Housing: I Have Housing Concerned About Future Housing: No Difficulty Paying Gas/Electric Bills: No Difficulty Paying for Meds: No Currently Unemployed: No Education: Bachelor's Degree Difficulty w/ Childcare or Family Care: No Living arrangements: with family Occupation/Education: occupation 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 Gender identity (if verbalized by the patient): Female Spiritual care concerns: No Anes - Eval Final PreProcedure Day of Procedure 10/23/23 08:51 Patient weight: overweight Heart: regular rate and rhythm Lungs: clear to auscultation Airway: Mallampati scale class II Neurological: alert and oriented Last oral intake: >/= 8 hours ASA classification: II Emergent: no Anesthetic plan: proceed Anesthesia type and monitoring: general GIVS and standard monitoring Results Review: All pre-operative results and documents have been reviewed as part of the pre-operative evaluation. Informed Consent: The patient's anesthetic plan and its attendant risks and benefits were discussed with the patient/family/POA. Questions were solicited and answers provided to the satisfaction of the patient/family/POA.
[2023-10-23 09:22] VITALS: BP 96/48; PULSE 78; RESP 14; O2SAT 99
[2023-10-23 09:32] VITALS: BP 91/48; PULSE 72; RESP 16; O2SAT 100
[2023-10-23 09:42] VITALS: BP 95/60; PULSE 80; RESP 18; O2SAT 100
--- NOTE | 2023-10-23 09:58 | WPDANESPN ---
Anes - Prog Note Post-Op Date/Time: 10/23/23 09:58 Cardiovascular status: normal Respiratory status: normal Airway patency: baseline Mental status: baseline Post-Op hydration status: normal Vital Signs: Last Vital Signs Temp 36.6 C 10/23/23 07:46 Pulse 80 10/23/23 09:42 Resp 18 10/23/23 09:42 BP 95/60 L 10/23/23 09:42 Pulse Ox 100 10/23/23 09:42 O2 Del Method Room Air 10/23/23 09:42 Pain Score (VAS): 0/10 I/O: Intake & Output 10/22/23 10/23/23 10/23/23 23:59 07:59 15:59 Intake Total 900 Balance 900 Patient Feedback: Patient satisfied with anesthetic care.
== END 2023-10-23 10:00 | disposition home or self-care (01) ==
PROVIDERS: PCP Family Medicine; Visit Provider Internal Medicine Gastroenterology
PROC: 0DJ08ZZ Inspection of Upper Intestinal Tract, Via Natural or Artificial Opening Endoscopic (ICD-10-PCS; CPT 43235; principal; 2023-10-23 09:00)
PROC: 0DJD8ZZ Inspection of Lower Intestinal Tract, Via Natural or Artificial Opening Endoscopic (ICD-10-PCS; CPT 45378; 2023-10-23 09:00)
DX: R93.3 Abnormal findings on diagnostic imaging of other parts of digestive tract (principal); R10.13 Epigastric pain; R11.2 Nausea with vomiting, unspecified
CPT/HCPCS: 45378; 43239

== ENCOUNTER 2024-02-14 09:26 | Outpatient (CLI) | payer OTHER, SELFPAY ==
--- NOTE | ~2024-02-14 | XR_ITS ---
[id number] Ordering provider: Shila Ford, [place] History: . Rib pain,L,due to trauma . Comparison: None. FINDINGS: BONES: No acute left rib fracture or fracture of the visualized osseous structures. LEFT LUNG: No effusions or infiltrates. No pneumothorax. SOFT TISSUES: Normal. IMPRESSION: No left rib fracture. No acute cardiopulmonary pathology. Reviewed, dictated and finalized at location A. [facility] [employer]
== END 2024-02-14 09:27 | disposition home or self-care (01) ==
PROVIDERS: PCP Family Medicine; Visit Provider Chiropractor
DX: R07.81 Pleurodynia (principal); R07.89 Other chest pain
CPT/HCPCS: 71101